=== PATIENT | female | born 1975 | race Caucasian/White ===

== ENCOUNTER 2020-08-11 16:11 | Emergency (ER) | payer MEDICAID ==
[~2020-08-11 16:11] MED LIST: DOCU-28 PO; NAPR-56 PO
== END 2020-08-11 18:05 | disposition left against medical advice (07) ==
LOC: ER 16:11
DX: N23 Unspecified renal colic (principal); Z53.21 Procedure and treatment not carried out due to patient leaving prior to being seen by health care provider